=== PATIENT | female | born 1995 | race Caucasian/White ===

== ENCOUNTER 2020-01-26 13:36 | Emergency (ER) | payer OTHER ==
[~2020-01-26] VITALS: Ht 157.5 cm; Wt 54.4 kg
[2020-01-26] MEDS ORDERED: TOBREX5 ML OP (14:00)
--- NOTE | 2020-01-26 14:00 | Emergency Department Note ---
History of Present Illnes History of Present Illness Chief Complaint: rgt eye redness/pain s/p extension cord hitting eye after being pulled from the wall History of Present Illness This is a 24 year old female . was doing well prior to this. was doing well prior to this. Historian: Patient Arrival Mode: Car History limited by: condition of the patient (normal) [employer] Required: No Onset (how long ago): day(s) (1) Location: see above Quality: sharp Radiation: Reports non-radiation Severity: moderate Onset quality: sudden Duration (how long): day(s) (1) Timing of current episode: constant Progression: unchanged Chronicity: new Context: Reports trauma/injury Relieving factors: none Exacerbating factors: movement Associated symptoms: Reports denies other symptoms Treatments prior to arrival: none Past Medical/Family History Physician Review I have reviewed the patient's past medical and family history. Any updates have been documented here. Past Medical History Recent Fever: No Clinical Suspicion of Infectio: No New/Unexplained Change in Ment: No Other Medical History: adhd Past Surgical History: Appendectomy Social History Smoking Cessation: Never Smoker Counseling Performed: No Alcohol Use: Social Any Illegal Drug Use: No TB Exposure/Symptoms: No Physically hurt or threatened: No Family History Family history of heart diseas: No Other Any Pre-Existing Lines (PICC,: No Is patient up to date on immun: No Review of Systems Review of Systems Constitutional: Reports no symptoms EENTM: Reports as per HPI, Reports eye pain Cardiovascular: Reports no symptoms Respiratory: Reports no symptoms Gastrointestinal: Reports no symptoms Genitourinary: Reports no symptoms Musculoskeletal: Reports no symptoms Integumentary: Reports no symptoms Neurological: Reports no symptoms Psychological: Reports no symptoms Endocrine: Reports no symptoms Hematological/Lymphatic: Reports no symptoms Review of other systems: All other systems negative Physical Exam Related Data Allergies: Coded Allergies: Cefaclor (Verified Allergy, Unknown, 11/05/08) Triage Vital Signs Vital Signs Date Time Temp Pulse Resp B/P (MAP) Pulse Ox O2 Delivery O2 Flow Rate FiO2 01/26/20 13:50 98.5 77 16 118/79 100 Vital signs reviewed: Yes Physical Exam CONSTITUTIONAL Constitutional: Present well-developed, Present well-nourished HENT HENT: Present normocephalic, Present atraumatic, Present oropharynx clear/moist, Present nose normal HENT L/R: Present left ext ear normal, Present right ext ear normal EYES Eyes: Reports PERRL, Reports other (rgt eye erythema/ + cornealvabrasion under fluorescence) NECK Neck: Present ROM normal PULMONARY Pulmonary: Present effort normal, Present breath sounds normal CARDIOVASCULAR Cardiovascular: Present regular rhythm, Present heart sounds normal, Present capillary refill normal, Present normal rate GASTROINTESTINAL Abdominal: Present soft, Present nontender, Present bowel sounds normal GENITOURINARY Genitourinary: Present exam deferred SKIN Skin: Present warm, Present dry MUSCULOSKELETAL Musculoskeletal: Present ROM normal NEUROLOGICAL Neurological: Present alert, Present oriented x 3, Present no gross motor or sensory deficits PSYCHOLOGICAL Psychological: Present mood/affect normal, Present judgement normal Assessment & Plan Medical Decision Making MDM corneal abrasion Assessment & Plan Final Impression: (1) Cornea abrasion Depart Disposition: HOME, SELF-CARE Last Vital Signs Date Time Temp Pulse Resp B/P (MAP) Pulse Ox O2 Delivery O2 Flow Rate FiO2 01/26/20 13:50 98.5 77 16 118/79 100 Home Meds Active Scripts Tobramycin Sulfate (TOBREX) 5 Ml Drops, 2 DROP OP Q4HR, #1 BOTTLE put into right eye Prov:CINDY REYES 01/26/20 CINDY REYES Jan 26, 2020 14:00
[2020-01-26] MEDS: TETRACAINE HCL 0.5% OPTH SOLN 4 ML BTL OP ONE (14:07)
[2020-01-26] MEDS: EYE IRRIGATION (OPTH) 120 ML BTL OP ONE (14:07)
--- OUTSIDE RECORDS SUMMARY | 2020-01-26 14:24 | XMS REPORT | Continuity of Care Document ---
Author Author [email or web address] Address Unknown Phone Unavailable Care Team Providers Care Performance Architect Name Role Phone [employer] Unavailable Un available Problems Problem Status Onset Date Classification Date Reported Comments Source Bulimia Nervosa, Purging Type Active 02/14/2013 [facility] Acute Laryngitis Active 02/14/2013 [facility] Acute Sinusitis Active 02/14/2013 [facility] Attention Deficit Disorder Without Hyperactivity Active 02/14/2013 [facility] Acute Pharyngitis Active 02/14/2013 [facility] Bronchitis Active 02/14/2013 [facility] Medications Medication Details Route Status Patient Instructions Ordering Provider Order Date Source Azithromycin 250 MG Oral Tablet ; Start Date: 02/04/2013; End Date: 02/14/2013 (Active) Active 02/04/2013 [facility] PredniSONE 10 MG Oral Tablet ; Start Date: 02/04/2013; End Date: (Active) Active 02/04/2013 [facility] ProAir HFA 108 (90 Base) MCG/ACT Inhalat ion Aerosol Solution ; Start Date: 02/04/2013; End Date: 03/1899 (Active) Active 02/04/2013 [facility] Loestrin 1.5/30 (21) 1.5-30 MG-MCG Oral Tablet ; Start Date: 01/16/2013 (Active) Active 01/16/2013 [facility] Concerta 36 MG Oral Tablet Extended Release (Active) Active [facility] Vyvanse CAPS (Active) Active [facility] Allergies, Adverse Reactions, Alerts Substance Category Reaction Severity Reaction type Status Date Reported Comments Source Ceclor CAPS drug allergy drug allergy Active [facility] Immunizations No Data Provided for This Section Results No Data Provided for This Section Pathology Reports No Data Provided for This Section Diagnostic Reports No Data Provided for This Section Consultation Notes No Data Provided for This Section Discharge Summaries No Data Provided for This Section History and Physicals No Data Provided for This Section Vital Signs No Data Provided for This Section Encounters Location Location Details Encounter Type Encounter Number Reason For Visit Attending Provider ADM Date DC Date Status Source AUDIT [id number] 12/10/2012 12/10/2012 [facility] AUDIT [id number] 01/16/2013 01/16/2013 [facility] AUDIT [id number] 01/28/2013 01/28/2013 [facility] AUDIT [id number] 02/04/2013 02/04/2013 [facility] AUDIT [id number] 02/14/2013 02/14/2013 [facility] Procedures No Data Provided for This Section Assessment and Plan No Data Provided for This Section Plan of Care Plan of Care Date Source [QLH] CBC (INCLUDES DIFF/PLT) 11/07/2012 Routine[QLH] CMP W/EGFR 11/07/2012 Routine[QLH] TSH, 3RD GENERATION 11/07/2012 Routine 02/14/2013 [facility] [QLH] CBC (INCLUDES DIFF/PLT) 11/07/2012 Routine[QLH] CMP W/EGFR 11/07/2012 Routine[QLH] TSH, 3RD GENERATION 11/07/2012 Routine 02/04/2013 [facility] [QLH] CBC (INCLUDES DIFF/PLT) 11/07/2012 Routine[QLH] CMP W/EGFR 11/07/2012 Routine[QLH] TSH, 3RD GENERATION 11/07/2012 Routine 01/28/2013 [facility] [QLH] CBC (INCLUDES DIFF/PLT) 11/07/2012 Routine[QLH] CMP W/EGFR 11/07/2012 Routine[QLH] TSH, 3RD GENERATION 11/07/2012 Routine 01/16/2013 [facility] [QLH] CBC (INCLUDES DIFF/PLT) 11/07/2012 Routine[QLH] CMP W/EGFR 11/07/2012 Routine[QLH] TSH, 3RD GENERATION 11/07/2012 Routine 12/10/2012 [facility] Social History Social History Date Source Never A Smoker (Active) Never Drank Alcohol (Active) 02/14/2013 [facility] Family History Value Date S ource Paternal history of Denial Of Any Signif icant Medical History (Active) Maternal history of Denial Of Any Significant Medical History (Active) 02/14/2013 [facility] Paternal history of Denial Of Any Signif icant Medical History (Active) Maternal history of Denial Of Any Significant Medical History (Active) 02/04/2013 [facility] Paternal history of Denial Of Any Signif icant Medical History (Active) Maternal history of Denial Of Any Significant Medical History (Active) 01/28/2013 [facility] Paternal history of Denial Of Any Signif icant Medical History (Active) Maternal history of Denial Of Any Significant Medical History (Active) 01/16/2013 [facility] Paternal history of Denial Of Any Signif icant Medical History (Active) Maternal history of Denial Of Any Significant Medical History (Active) 12/10/2012 [facility] Advance Directives Order Name Results Value Date Source Advance Directives Advance Dir ectives No Advance Directives available. 02/14/2013 [facility] Advance Directives Advance Dir ectives No Advance Directives available. 02/04/2013 [facility] Advance Directives Advance Dir ectives No Advance Directives available. 01/28/2013 [facility] Advance Directives Advance Dir ectives No Advance Directives available. 01/16/2013 [facility] Advance Directives Advance Dir ectives No Advance Directives available. 12/10/2012 [facility] Functional Status No Data Provided for This Section
== END 2020-01-26 14:03 | disposition home or self-care (01) ==
LOC: FSED 13:52
DX: S05.01XA Injury of conjunctiva and corneal abrasion without foreign body, right eye, initial encounter (principal); W22.8XXA Striking against or struck by other objects, initial encounter; Y92.008 Other place in unspecified non-institutional (private) residence as the place of occurrence of the external cause; F90.9 Attention-deficit hyperactivity disorder, unspecified type
CPT/HCPCS: 99283